=== PATIENT | female | born 1990 | race Caucasian/White ===

== ENCOUNTER → 2020-05-21 | Outpatient (CLI) | payer OTHER ==
[~2020-05-21] MED LIST: IBUP600T OR; MOTR200T44 PO; PRENTAB8 PO; TYLE325T5 PO; TYLE500T53 OR; [UNRECOGNIZED DRUG - OTHER] PO
--- NOTE | 2020-06-10 11:18 | REP ---
PELVIC ULTRASOUND CLINICAL: Pelvic pain. Evaluate for endometrium. TECHNIQUE: Transabdominal pelvic ultrasound with color Doppler evaluation of the ovaries. FINDINGS: The bladder is normal and measures 11.3 x 10.0 x 6.8 cm. Normal anteverted uterus measures 10.2 x 3.5 x 5.7 cm. The endometrial complex measures 3.4 mm thickness. No discrete uterine or endometrium abnormalities are identified. The bilateral ovaries are normal in appearance and vascularity. Right ovary measures 3.1 x 1.7 x 2.0 cm (RI 0.40). Left ovary measures 3.9 x 1.9 x 2.6 cm (RI 0.44). No pelvic fluid or adnexal mass lesion. IMPRESSION: Normal pelvic ultrasound. MTDD
== END ==
LOC: M WHC 12:05
PROVIDERS: ATTEND Specialist
DX: N92.0 Excessive and frequent menstruation with regular cycle (principal)